=== PATIENT | female | born 1960 | race Asian ===

== ENCOUNTER 2019-03-18 09:16 | Inpatient (IN) | payer MEDICAID ==
[2019-03-18] VITALS (22 sets, daily range): BP systolic 11–132; BP diastolic 70–83; PULSE 67–80; RESP 16–23; Ht 160 cm; Wt 76.3 kg
[~2019-03-18] VITALS: Ht 160 cm; Wt 76.3 kg
[~2019-03-18 09:16] MED LIST: AMLO-147 ORAL; LOSA100T15 ORAL
[2019-03-18] MEDS ORDERED: BUPIVACAINE 0.5%/EPI (SDV) 10 ML INJ ONE (13:02)
[2019-03-18] MEDS ORDERED: ROCURONIUM 50 MG INJ ONE (13:14)
[2019-03-18] MEDS ORDERED: CEFAZOLIN 1 GM INJ ONE (13:14)
[2019-03-18] MEDS ORDERED: LIDOCAINE 2% (SDV) 5 ML INJ ONE (13:14)
[2019-03-18] MEDS ORDERED: FENTAnyl 50 MCG/ML VIAL ONE ×2 (13:14→14:08)
[2019-03-18] MEDS ORDERED: SUCCINYLCHOLINE CHLORIDE 100 MG/5 ML SYG IV ONE (13:14)
[2019-03-18] MEDS ORDERED: PROPOFOL 200 MG INJ ONE (13:14)
[2019-03-18] MEDS ORDERED: MIDAZOLAM 1 MG/ML 2 ML INJ ONE (13:15)
[2019-03-18] MEDS ORDERED: ONDANSETRON 4 MG INJ ONE (13:57)
[2019-03-18] MEDS ORDERED: DEXAMETHASONE 4 MG/ML 5 ML INJ ONE (14:01)
[2019-03-18] MEDS ORDERED: EPHEDrine 25 MG/5 ML SYG ONE (14:10)
[2019-03-18] MEDS ORDERED: hydrALAzine 20 MG INJ IV PRN (14:30)
[2019-03-18] MEDS ORDERED: ONDANSETRON 4 MG INJ IV PRN ×2 (14:30→15:30)
[2019-03-18] MEDS ORDERED: FENTAnyl 50 MCG/ML VIAL IV PRN ×3 (14:30)
[2019-03-18] MEDS ORDERED: LABETALOL HCL 20MG INJ IV PRN (14:30)
[2019-03-18] MEDS ORDERED: OXYCODONE/ACETAMINOPHEN (5/325) TAB PO PRN ×2 (14:30)
[2019-03-18] MEDS ORDERED: ALBUTEROL 0.083% (NEB) 2.5 MG/3 ML AMP HHN PRN (14:30)
[2019-03-18] MEDS ORDERED: MEPERIDINE 25 MG INJ IV PRN (14:30)
[2019-03-18] MEDS ORDERED: HYDROmorphONE 1 MG/5 ML IV SYRINGE IV PRN ×3 (14:30)
[2019-03-18] MEDS ORDERED: DIPHENHYDRAMINE 50 MG INJ IV PRN (14:30)
[2019-03-18] MEDS ORDERED: IPRATROPIUM (NEB) 0.5 MG/2.5 ML AMP HHN PRN (14:30)
[2019-03-18] MEDS ORDERED: EPHEDrine 25 MG/5 ML SYG IV PRN (14:30)
[2019-03-18] MEDS ORDERED: morphine 2 MG INJ IV PRN (15:30)
[2019-03-18] MEDS ORDERED: HYDROCODONE/APAP (5/325) TAB PO PRN (16:30)
[2019-03-18] MEDS: ACETAMINOPHEN 1000MG/100ML IV 100 ML IVPB PRN (16:36)
[2019-03-18] MEDS: D5W-0.45 NACL + KCL 20 MEQ 1,000 ML IV SCH (17:37)
[2019-03-18] MEDS: SOD CHLORIDE 0.9% 1,000 ML IV SCH (17:49)
[2019-03-19] MEDS: SOD CHLORIDE 0.9% 1,000 ML IV SCH ×2 (00:50→13:25)
[2019-03-19] MEDS: D5W-0.45 NACL + KCL 20 MEQ 1,000 ML IV SCH ×3 (02:26→15:08)
[2019-03-19] MEDS: ACETAMINOPHEN 1000MG/100ML IV 100 ML IVPB PRN ×2 (02:37→14:17)
[2019-03-19 07:26] VITALS: BP 119/69; PULSE 60; RESP 18
[2019-03-19] MEDS ORDERED: AMLODIPINE 10 MG TAB PO SCH (09:00)
[2019-03-19 14:56] VITALS: BP 103/59; PULSE 59; RESP 18
== END 2019-03-19 16:10 | disposition home or self-care (01) | DRG 830 ==
LOC: REC 09:16 → MS1 16:25
PROVIDERS: ADMIT Surgery Surgical Oncology; ATTEND Surgery Surgical Oncology
PROC: 07B60ZZ Excision of Left Axillary Lymphatic, Open Approach (ICD-10-PCS; 2019-03-18)
PROC: 0HTU0ZZ Resection of Left Breast, Open Approach (ICD-10-PCS; principal; 2019-03-18 12:30)
DX: C79.89 Secondary malignant neoplasm of other specified sites (principal); I10 Essential (primary) hypertension
CPT/HCPCS: 80053; 85025; 88309; J0131; J0690; J1100; J2250; J2405; J3010; J3480; J7030